=== PATIENT | male | born 1950 | race Caucasian/White ===

== ENCOUNTER 2017-09-18 20:33 | Emergency (ER) | payer BC, MEDICARE ==
[2017-09-18] MEDS ORDERED: Dexamethasone 4 mg/ml Vial ONE (21:13)
[2017-09-18] MEDS ORDERED: Famotidine 20 MG TAB ONE (21:13)
[2017-09-18] MEDS ORDERED: hydrOXYzine 25 MG TAB ONE (21:15)
== END 2017-09-18 21:45 | disposition home or self-care (01) ==
LOC: ERS 20:33
DX: R21 Rash and other nonspecific skin eruption (principal); I25.10 Atherosclerotic heart disease of native coronary artery without angina pectoris; I10 Essential (primary) hypertension; E10.9 Type 1 diabetes mellitus without complications; H54.40 Blindness, one eye, unspecified eye; Z86.73 Personal history of transient ischemic attack (TIA), and cerebral infarction without residual deficits
CPT/HCPCS: 99282; J1100

== ENCOUNTER 2021-08-05 11:30 | Outpatient (CLI) | payer MEDICARE, BC | END 2021-08-05 11:31 | disposition home or self-care (01) | LOC: BICRAD 11:30 | PROVIDERS: ATTEND Family Medicine | DX: R05.9 Cough, unspecified (principal) | CPT/HCPCS: 71046 ==

== ENCOUNTER 2024-01-28 08:37 | Outpatient (CLI) | payer MEDICARE ==
[2024-01-28] MEDS ORDERED: Magnevist 469MG/ML 20 ML VIAL ONE (12:40)
== END 2024-01-28 08:38 | disposition home or self-care (01) ==
LOC: MRI 08:37
PROVIDERS: ATTEND Radiology Radiation Oncology
DX: R42 Dizziness and giddiness (principal); Z85.820 Personal history of malignant melanoma of skin
CPT/HCPCS: 70553; 76377; A9579

== ENCOUNTER 2024-01-31 11:45 | Outpatient (CLI) | payer MEDICARE | END 2024-01-31 11:46 | disposition home or self-care (01) | LOC: PET 11:45 | PROVIDERS: ATTEND Internal Medicine | DX: C43.8 Malignant melanoma of overlapping sites of skin (principal) | CPT/HCPCS: 78816; A9552 ==

== ENCOUNTER 2024-04-04 12:16 | Outpatient (CLI) | payer MEDICARE ==
[~2024-04-04 12:16] MED LIST: Iopamidol 370 76% 100 ML VIAL ONE
== END 2024-04-04 12:17 | disposition home or self-care (01) ==
LOC: CT 12:16
PROVIDERS: ATTEND Internal Medicine
DX: C43.8 Malignant melanoma of overlapping sites of skin (principal); R13.10 Dysphagia, unspecified; R59.0 Localized enlarged lymph nodes; I65.23 Occlusion and stenosis of bilateral carotid arteries; M47.891 Other spondylosis, occipito-atlanto-axial region; M25.78 Osteophyte, vertebrae; J34.89 Other specified disorders of nose and nasal sinuses; I25.10 Atherosclerotic heart disease of native coronary artery without angina pectoris; Z98.890 Other specified postprocedural states; Z79.899 Other long term (current) drug therapy; Z95.818 Presence of other cardiac implants and grafts
CPT/HCPCS: 70491; 71260; J1642; Q9967

== ENCOUNTER 2024-04-10 09:30 | Outpatient (CLI) | payer MEDICARE | END 2024-04-10 09:31 | disposition home or self-care (01) | LOC: PET 09:30 | PROVIDERS: ATTEND Internal Medicine | DX: C43.8 Malignant melanoma of overlapping sites of skin (principal); M79.89 Other specified soft tissue disorders | CPT/HCPCS: 78816; A9552 ==

== ENCOUNTER 2024-08-03 13:37 | Outpatient (CLI) | payer MEDICARE ==
[2024-08-03] MEDS ORDERED: Magnevist 469MG/ML 20 ML VIAL ONE (14:10)
== END 2024-08-03 13:38 | disposition home or self-care (01) ==
LOC: MRI 13:37
PROVIDERS: ATTEND Internal Medicine
DX: C43.8 Malignant melanoma of overlapping sites of skin (principal); R41.0 Disorientation, unspecified; Z79.899 Other long term (current) drug therapy
CPT/HCPCS: 70553; 76376

== ENCOUNTER 2025-05-11 08:45 | Outpatient (CLI) | payer MEDICARE | END 2025-05-11 08:46 | disposition home or self-care (01) | LOC: PET 08:45 | PROVIDERS: ATTEND Internal Medicine | DX: C43.8 Malignant melanoma of overlapping sites of skin (principal); L29.9 Pruritus, unspecified; R41.0 Disorientation, unspecified; Z79.899 Other long term (current) drug therapy | CPT/HCPCS: 78816; A9552 ==